=== PATIENT | female | born 1965 | race Two or more races ===

== ENCOUNTER 2019-04-28 07:36 | Outpatient (CLI) | payer OTHER ==
[~2019-04-28] VITALS: Ht 157.5 cm; Wt 78.9 kg
[2019-04-28] MEDS ORDERED: FLONASE16 GM NASAL (09:42)
[2019-04-28] MEDS ORDERED: PEPCID40 MG PO (09:42)
== END 2019-04-28 09:20 | disposition home or self-care (01) ==
LOC: OFIC 805 07:36
DX: E04.2 Nontoxic multinodular goiter (principal); R22.1 Localized swelling, mass and lump, neck; J31.0 Chronic rhinitis; R05 Cough; K21.9 Gastro-esophageal reflux disease without esophagitis